=== PATIENT | female | born 1990 | race Hispanic/Latino ===

== ENCOUNTER 2019-06-15 16:51 | Emergency (ER) | payer OTHER ==
--- NOTE | 2019-06-15 17:01 | Event Note ---
ED Screening Note Date of service: 06/15/19 Time: 16:57 ED Screening Note: This is a 28 y.o. F. that presents to the ER with neck pain radiating to RUE. Patient reports intermittent numbness and tingling started yesterday. She is seeing a chiropractor from a [facility] 05/28/2019. Patient states chiropractor manually adjusted her neck last Thursday which aggravated symptoms. She is waiting to have an MRI scheduled. This initial assessment/diagnostic orders/clinical plan/treatment(s) is/are s ubject to change based on patients health status, clinical progression and re- assessment by fellow clinical providers in the ED. Further treatment and workup at subsequent clinical providers discretion. Patient/guardian urged not to elope from the ED as their condition may be serious if not clinically assessed and managed. Initial orders include:
[2019-06-15] MEDS ORDERED: DELTASONE PO ONE (19:40)
[2019-06-15] MEDS ORDERED: NORCO 5/325 PO ONE (19:42)
[2019-06-15] MEDS ORDERED: ZOFRAN ODT PO ONE (19:42)
[2019-06-15] MEDS ORDERED: TORADOL IM ONE (19:42)
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
[2019-06-15 21:00] VITALS: BP 154/99
== END 2019-06-15 20:58 | disposition home or self-care (01) ==
LOC: ED 16:51
DX: M54.12 Radiculopathy, cervical region (principal); V89.2XXA Person injured in unspecified motor-vehicle accident, traffic, initial encounter; Y93.89 Activity, other specified; Y92.488 Other paved roadways as the place of occurrence of the external cause; Y99.8 Other external cause status
CPT/HCPCS: 99282; J1885; J7512; Q0162